=== PATIENT | male | born 2000 | race Caucasian/White ===

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

== ENCOUNTER 2023-04-30 19:30 | Emergency (ER) | payer OTHER ==
[~2023-04-30] VITALS: Ht 177.8 cm; Wt 54.4 kg
== END 2023-04-30 20:51 | disposition home or self-care (01) ==
LOC: ER 19:31
DX: J32.9 Chronic sinusitis, unspecified (principal)

== ENCOUNTER 2023-10-28 21:45 | Emergency (ER) | payer OTHER ==
[~2023-10-28] VITALS: Ht 180.3 cm; Wt 59.0 kg
[2023-10-29] MEDS ORDERED: ONDANSETRON 4 MG TAB.RAPDIS PO STA (01:23)
[2023-10-29] MEDS ORDERED: ONDANSETRON 4 MG TAB.RAPDIS PO ONE (01:28)
[2023-10-29 01:46] LABS: HEMATOCRIT 42.9 % (39.0-48.0); HEMOGLOBIN 14.9 g/dL (13-16.00); MEAN CELL VOLUME 90.2 fL (80.0-100.00); MEAN CORPUSCULAR HEMOGLOBIN 31.3 pg (27.00-32.0); MEAN CORPUSCULAR HGB CONC 34.7 g/dl (32.0-36.0); PLATELET COUNT 202 K/uL (150-450); RED BLOOD COUNT 4.76 M/uL (4.00-6.00); RED CELL DISTRIBUTION WIDTH 13.1 % (11.5-14.5)
[2023-10-29] MEDS ORDERED: DOLOGESIC-DF 51 EACH PO (03:24)
== END 2023-10-29 03:50 ==
LOC: ER 21:47
PROVIDERS: General Practice
DX: J45.901 Unspecified asthma with (acute) exacerbation (principal); R53.81 Other malaise; Z20.822 Contact with and (suspected) exposure to COVID-19

== ENCOUNTER 2023-10-29 19:43 | Emergency (ER) | payer OTHER ==
[~2023-10-29] VITALS: Ht 180.3 cm; Wt 59.0 kg
[~2023-10-29 19:43] MED LIST changes: +DOLOGESIC-DF 51 EACH PO
[2023-10-29] MEDS ORDERED: FAMOTIDINE/PF 20 MG/2 ML VIAL IV ONE (20:30)
[2023-10-29] MEDS ORDERED: 0.9 % SODIUM CHLORIDE 500 ML IV SCH (20:30)
[2023-10-29] MEDS ORDERED: ONDANSETRON HCL 2 MG/ML VIAL IV ONE (20:30)
[2023-10-29] MEDS ORDERED: ONDANSETRON HCL 2 MG/ML VIAL ONE (20:56)
[2023-10-29] MEDS ORDERED: FAMOTIDINE/PF 20 MG/2 ML VIAL ONE (20:57)
[2023-10-29 21:15] LABS: HEMATOCRIT 44.6 % (39.0-48.0); HEMOGLOBIN 15.7 g/dL (13-16.00); MEAN CELL VOLUME 89.2 fL (80.0-100.00); MEAN CORPUSCULAR HEMOGLOBIN 31.5 pg (27.00-32.0); MEAN CORPUSCULAR HGB CONC 35.3 g/dl (32.0-36.0); PLATELET COUNT 156 K/uL (150-450); RED CELL DISTRIBUTION WIDTH 12.6 % (11.5-14.5)
[2023-10-29 21:41] LABS: PH,URINE 5.5 (5.0-8.0); URINE APPEARANCE Clear; URINE BILIRRUBIN Small (NEGATIVE); URINE BLOOD Negative; URINE COLOR Dark Yellow; URINE GLUCOSE Negative (NEGATIVE); URINE LEUKOCYTE Negative; URINE NITRATE Negative; URINE PROTEIN 30 (NEGATIVE)
[2023-10-29 21:43] LABS: CREATININE SERUM 1.01 mg/dL (0.70-1.30); GFR 93.25; POTASSIUM 4.11 mEq/L (3.5-5.1)
[2023-10-29 21:45] LABS: URINE EPITHELIAL CELLS 7.4 uL (0.0-38.8); URINE RBC 5.6 uL (0.0-20.8); URINE WBC 11.8 uL (0.0-23.2)
[2023-10-29 21:53] LABS: URINE CAST 0.15 uL (0.0-1.40); URINE KETONE 40 (NEGATIVE)
== END 2023-10-29 22:59 | disposition home or self-care (01) ==
LOC: ER 19:44
PROVIDERS: General Practice
DX: R10.13 Epigastric pain (principal); R11.10 Vomiting, unspecified; B34.9 Viral infection, unspecified; J45.909 Unspecified asthma, uncomplicated
CPT/HCPCS: 36415; 96365; 99282; J2405; J3490; J7042

== ENCOUNTER 2024-03-01 21:58 | Emergency (ER) | payer OTHER ==
[~2024-03-01] VITALS: Ht 177.8 cm; Wt 56.7 kg
[2024-03-01] MEDS ORDERED: FAMOTIDINE/PF 20 MG in 0.9 % SODIUM CHLORIDE 8 ML IV PUSH STA (23:27)
[2024-03-01] MEDS ORDERED: ONDANSETRON HCL 2 MG/ML VIAL IV ONE (23:30)
[2024-03-01] MEDS ORDERED: KETOROLAC TROMETHAMINE 30 MG VIAL IV ONE (23:30)
[2024-03-01] MEDS ORDERED: 0.9 % SODIUM CHLORIDE 1,000 ML IV SCH (23:30)
[2024-03-01 23:49] LABS: HEMATOCRIT 45.9 % (39.0-48.0); HEMOGLOBIN 15.7 g/dL (13-16.00); MEAN CELL VOLUME 88.7 fL (80.0-100.00); MEAN CORPUSCULAR HEMOGLOBIN 30.4 pg (27.00-32.0); MEAN CORPUSCULAR HGB CONC 34.2 g/dl (32.0-36.0); PLATELET COUNT 336 K/uL (150-450); RED BLOOD COUNT 5.17 M/uL (4.00-6.00); RED CELL DISTRIBUTION WIDTH 12.9 % (11.5-14.5)
[2024-03-02 00:19] LABS: ALBUMIN 4.2 gm/dL (3.4-5.0); BILIRUBIN TOTAL 1.25 mg/dL (0.3-1.2); CALCIUM 9.1 mg/dL (8.5-10.1); CREATININE SERUM 0.9 mg/dL (0.70-1.30); GFR 105.52; GLOBULINA 3.8 G/DL (2.4-3.5); POTASSIUM 5.82 mEq/L (3.5-5.1)
[2024-03-02 01:09] LABS: PH,URINE 5.5 (5.0-8.0); URINE APPEARANCE Clear; URINE BILIRRUBIN Negative (NEGATIVE); URINE BLOOD Negative; URINE COLOR Yellow; URINE GLUCOSE Negative (NEGATIVE); URINE KETONE 15 (NEGATIVE); URINE LEUKOCYTE Negative; URINE NITRATE Negative; URINE PROTEIN Negative (NEGATIVE); URINE UROBILINOGEN 0.2 E.U./dl
[2024-03-02 01:13] LABS: URINE WBC 4.9 uL (0.0-23.2)
[2024-03-02 01:36] LABS: URINE BACTERIA 2.5 uL (0.0-1933)
== END 2024-03-02 02:53 | disposition left against medical advice (07) ==
LOC: ER 22:00
PROVIDERS: General Practice
DX: R53.81 Other malaise (principal); R42 Dizziness and giddiness; R51.9 Headache, unspecified; Z20.822 Contact with and (suspected) exposure to COVID-19

== ENCOUNTER 2025-02-08 12:58 | Emergency (ER) | payer OTHER ==
[~2025-02-08] VITALS: Ht 180.3 cm; Wt 61.2 kg
[2025-02-08 15:15] VITALS: BP 125/81; O2SAT 100
[2025-02-08] MEDS ORDERED: DEXAMETHASONE SODIUM PHOSP/PF 10 MG/ML VIAL IJ ONE (15:45)
[2025-02-08] MEDS ORDERED: CEFTRIAXONE SODIUM 1,000 MG VIAL IM ONE (15:45)
[2025-02-08] MEDS ORDERED: CEFTRIAXONE SODIUM 1,000 MG VIAL ONE (16:34)
[2025-02-08] MEDS ORDERED: DEXAMETHASONE SODIUM PHOSPHATE 4 MG/ML VIAL ONE (16:34)
[2025-02-08 17:11] LABS: BASO % 0.6 % (0.1-1.2); EOS # 0.72 (0.04-0.54); EOS % 8.4 % (0.7-7.0); LYMPH # 1.87 (1.18-3.74); LYMPH % 21.7 % (19.3-53.1); MEAN PLATELET VOLUME 9.40 fl (9.4-12.4); MONO # 0.91 (0.24-0.82); MONO % 10.6 % (4.7-12.5); NEUT # 5.03 (1.56-6.13); NEUT % 58.5 % (34.0-71.1); RED CELL DISTRIBUTION WIDTH 12.1 % (11.6-14.4)
[2025-02-08] MEDS ORDERED: MEDROLPACK PO (17:16)
== END 2025-02-08 17:47 | disposition home or self-care (01) ==
LOC: ER 12:58
PROVIDERS: General Practice
DX: R59.1 Generalized enlarged lymph nodes (principal)